=== PATIENT | male | born 1985 | race Hispanic/Latino ===

== ENCOUNTER 2020-04-17 14:06 | Emergency (ER) | payer SELFPAY ==
--- NOTE | 2020-04-17 14:21 | ED.PDOC ---
History of Present Illness - General Chief Complaint: Blood Pressure Problem Stated Complaint: High blood pressure Time Seen by Provider: 04/17/20 14:09 Source: patient, RN notes reviewed, Vital Signs reviewed, other - PCP Exam Limitations: no limitations - History of Present Illness Initial Comments: 35 yo male was being evaluated by pcp for possible covid, when they noted his bp was elevated 160/100. Patient did complain of headache which he thought was due to his sinuses, as he gets recurrent sinus infection. Headache has been on and off for the past week. Has been on decongestants. Also using sons inhaler. Patient has been having cough, congestion and headache about 10 days now. Went home early from work yesterday, boss said he had to get covid test before coming back so thus went to pcp office. Due to headache and elevated bp patient was sent her for evaluation of possible htn urgency/emergency. Allergies/Adverse Reactions: Allergies NO KNOWN ALLERGY Allergy (Unverified 08/13/14 13:12) Home Medications: Ambulatory Orders Azithromycin 250 mg PO DAILY #6 tab 04/17/20 Review of Systems - Review of Systems Constitutional: States: malaise. Denies: chills, fever EENTM: States: nose congestion. Denies: blurred vision, double vision, nose pain, throat swelling, mouth swelling Respiratory: States: cough. Denies: short of breath, wheezing Cardiology: Denies: chest pain, palpitations, syncope Gastrointestinal/Abdominal: Denies: abdominal pain, diarrhea, nausea, vomiting Genitourinary: Denies: dysuria, frequency, hematuria Musculoskeletal: States: muscle pain. Denies: back pain, joint pain, joint swelling, muscle stiffness Skin: Denies: rash Neurological: States: headache. Denies: numbness, paresthesia, seizure, tingling, tremors, weakness Endocrine: Denies: unexplained weight gain, unexplained weight loss Hematologic/Lymphatic: Denies: blood clots, easy bleeding, easy bruising Past Medical History (General) - Patient Medical History Hx Seizures: No Hx Stroke: No Hx Dementia: No Hx Asthma: Yes - "Think has asthma." Hx of COPD: No Hx Cardiac Disorders: No Hx Congestive Heart Failure: No Hx Pacemaker: No Hx Hypertension: No Hx Thyroid Disease: No Hx Diabetes: No Hx Gastroesophageal Reflux: Yes Hx Renal Disease: No Hx Cancer: No Hx of HIV: No Hx Hepatitis C: No Hx MRSA: No - Vaccination History Hx Tetanus, Diphtheria Vaccination: Yes - in last 5-6 years Hx Influenza Vaccination: No Hx Pneumococcal Vaccination: No - Social History Hx Tobacco Use: Yes - smokes marjiuna Hx Chewing Tobacco Use: Yes Hx Alcohol Use: Yes Hx Substance Use: No Hx Substance Use Treatment: No Hx Depression: No Hx Physical Abuse: No Hx Emotional Abuse: No Hx Suspected Abuse: No Family Medical History - Family History Mother Family History: Unknown Living Status: Still Living Physical Exam - Physical Exam General Appearance: Alert, Comfortable, No apparent distress, Well Developed, Well Groomed, Well Hydrated, Well Nourished Eye Exam: bilateral normal Ears, Nose, Throat: hearing grossly normal, normal ENT inspection, normal pharynx Neck: non-tender, full range of motion, supple, normal inspection Respiratory: chest non-tender, lungs clear, normal breath sounds, no respiratory distress, no accessory muscle use, other - prodcutive cough Cardiovascular/Chest: normal peripheral pulses, regular rate, rhythm - HR 95 on monitor , no edema, no gallop, no JVD, no murmur Peripheral Pulses: radial,right: 2+, radial,left: 2+, dorsalis pedis,right: 2+, dorsalis pedis,left: 2+ Gastrointestinal/Abdominal: normal bowel sounds, non tender, soft, no organomegaly, no pulsatile mass Rectal Exam: deferred Back Exam: normal inspection, no CVA tenderness, no vertebral tenderness Extremity: normal range of motion, non-tender, normal inspection, no pedal edema, no calf tenderness, normal capillary refill Neurologic: it senior analyst II-XII nml as tested, no motor/sensory deficits, alert, normal mood/affect, oriented x 3 Skin Exam: normal color, warm/dry Progress - Progress Progress: 04/17/20 14:59 Partial ddx: HTN urgency/emergency, Covid, sinus infection, URI, pneumonia, cad patient given 1 gram ceftriaxone and 8 mg dexamethasone. probable covid, test done at pcp office today. patient saturating 99% on RA, VSS. 04/17/20 16:12 The data reviewed when caring for this patient included: nurse notes, prior records, etc. The history and assessments from nurses notes were reviewed and considered, and the patient's home medication list was also reviewed and considered. My assessment and the results of testing completed here in the ED were discussed with the patient/family. All questions were answered, and they express understanding of my assessment and the plan. They have been instructed to return if their symptoms worsen, and have been asked to follow up with their primary care physician to recheck today's presenting complaint. return precautions given. patient has been instructed by both myself and pcp to monitor bp at home. I have reviewed medication, benefits, alternatives and side effects. Patient decided to proceed with medication.saray stevens was discharged home in stable condition. Mary Anne Pimentel DO #[id number] - Results/Orders Results/Orders: Mild elevated LFT, I suspect underlying fatty liver or other primary liver etiology, I do not feel this is a direct result of his current bp. Currently 140/90. 04/17/20 14:15 EKG STAT Laboratory Results WBC 5.4 K/mm3 (4.8-10.8) 04/17/20 14:20 RBC 5.51 M/mm3 (4.70-6.10) 04/17/20 14:20 Hgb 16.3 gm/dL (14.0-18.0) 04/17/20 14:20 Hct 46.6 % (42.0-52.0) 04/17/20 14:20 MCV 84.5 fl (80.0-94.0) 04/17/20 14:20 MCH 29.6 pg (27.0-31.0) 04/17/20 14:20 MCHC 35.0 g/dL (33.0-37.0) 04/17/20 14:20 RDW 12.6 % (11.5-14.5) 04/17/20 14:20 Plt Count 220 K/mm3 (130-400) 04/17/20 14:20 MPV 7.4 fl (7.40-10.4) 04/17/20 14:20 Absolute Neuts (auto) 3.50 K/uL (1.8-6.8) 04/17/20 14:20 Absolute Lymphs (auto) 1.10 K/uL (1.0-3.4) 04/17/20 14:20 Absolute Monos (auto) 0.60 K/uL (0.2-0.8) 04/17/20 14:20 Absolute Eos (auto) 0.10 K/uL (0.0-0.4) 04/17/20 14:20 Absolute Basos (auto) 0.00 K/uL (0.0-0.1) 04/17/20 14:20 Neutrophils % 64.2 % (42.0-78.0) 04/17/20 14:20 Lymphocytes % 20.7 % (20.0-50.0) 04/17/20 14:20 Monocytes % 11.9 % (2.0-9.0) H 04/17/20 14:20 Eosinophils % 2.7 % (1.0-5.0) 04/17/20 14:20 Basophils % 0.5 % (0.0-2.0) 04/17/20 14:20 PT 9.7 SECONDS (9.0-10.9) 04/17/20 14:20 INR < 1.00 (0.9-1.15) 04/17/20 14:20 PTT (SP) 26.1 SECONDS (21.8-31.6) 04/17/20 14:20 Sodium 136 mmol/L (135-145) 04/17/20 14:20 Potassium 3.7 mmol/L (3.6-5.0) 04/17/20 14:20 Chloride 103 mmol/L (101-111) 04/17/20 14:20 Carbon Dioxide 22 mmol/L (21-31) 04/17/20 14:20 Anion Gap 14.7 (12-18) 04/17/20 14:20 BUN 13 mg/dL (7-18) 04/17/20 14:20 Creatinine 0.73 mg/dL (0.6-1.3) 04/17/20 14:20 BUN/Creatinine Ratio 17.8 (10-20) 04/17/20 14:20 Random Glucose 106 mg/dL (70-105) H 04/17/20 14:20 Serum Osmolality 272.5 mOsm/L (275-295) L 04/17/20 14:20 Calcium 8.6 mg/dL (8.4-10.2) 04/17/20 14:20 Magnesium 1.8 mg/dL (1.8-2.5) 04/17/20 14:20 Total Bilirubin 0.6 mg/dL (0.2-1.0) 04/17/20 14:20 AST 44 IU/L (10-42) H 04/17/20 14:20 ALT 69 IU/L (10-60) H 04/17/20 14:20 Alkaline Phosphatase 77 IU/L (42-121) 04/17/20 14:20 Troponin I < 0.02 ng/mL (0.01-0.05) 04/17/20 14:20 B-Natriuretic Peptide < 15.0 pg/ml (0-100) 04/17/20 14:20 Serum Total Protein 7.8 gm/dL (6.4-8.2) 04/17/20 14:20 Albumin 4.5 g/dl (3.2-5.5) 04/17/20 14:20 Globulin 3.3 gm/dL (2.3-3.5) 04/17/20 14:20 Albumin/Globulin Ratio 1.4 (1.1-1.9) 04/17/20 14:20 Urine Color Yellow (Yellow) 04/17/20 14:30 Urine Appearance Clear (Clear) 04/17/20 14:30 Urine pH 5.5 (4.5-7.8) 04/17/20 14:30 Ur Specific [place] 1.025 (1.005-1.030) 04/17/20 14:30 Urine Protein Negative mg/dL 04/17/20 14:30 Urine Glucose (UA) Negative mg/dL (Negative) 04/17/20 14:30 Urine Ketones Negative mg/dL (NEGATIVE) 04/17/20 14:30 Urine Blood Negative (Negative) 04/17/20 14:30 Urine Nitrite Negative 04/17/20 14:30 Urine Bilirubin Negative (NEGATIVE) 04/17/20 14:30 Urine Urobilinogen 0.2 mg/dL (0.2-1.0) 04/17/20 14:30 Ur Leukocyte Esterase Negative (Negative) 04/17/20 14:30 Urine RBC 0-1 /hpf 04/17/20 14:30 Urine WBC 0-1 /hpf 04/17/20 14:30 Ur Epithelial Cells 0 /hpf 04/17/20 14:30 Urine Bacteria 0 04/17/20 14:30 - EKG/XRAY/CT EKG: Sinus Comments: HR 95, NSR, normal intervals, no evidence of ischema XRAY: chest - bilateral pneumonia CT: head without contrast: no ICH, no acute abnormalities. Departure - Departure Clinical Impression: Elevated blood pressure reading Pneumonia Qualifiers: Pneumonia type: due to unspecified organism Laterality: bilateral Lung lo cation: unspecified part of lung Qualified Code(s): J18.9 - Pneumonia, unspecified organism Time of Disposition: 15:59 Disposition: Discharge to Home or Self Care Condition: Good Departure Forms: ED Discharge - Pt. Copy, Patient Portal Self Enrollment Instructions: DI for High Blood Pressure, High Blood Pressure in Adults, DASH Diet, Pneumonia, Adult (DC), Liver Function Test Referrals: Brittney Lange MD [Primary Care Provider] - 1 Week Prescriptions: Azithromycin 250 mg PO DAILY #6 tab Home Medications: Ambulatory Orders Azithromycin 250 mg PO DAILY #6 tab 04/17/20
--- NOTE | 2020-04-17 15:19 | RAD ---
EXAM DESCRIPTION: Chest,1 View CLINICAL HISTORY: 35 years Male, cough, possible covid COMPARISON: None. TECHNIQUE: AP portable chest. FINDINGS: Heart size is normal with centrally prominent pulmonary vascularity. Ill-defined peripheral nodular infiltrate is seen in the left midlung and in the right mid to lower lung. Question minimal infiltrate in the left lung base behind the heart. The apices appear spared. Right hemidiaphragm is mildly elevated. No pneumothorax or pleural effusion. Bones are unremarkable. IMPRESSION: Bilateral pulmonary infiltrates consistent with the clinical diagnosis of pneumonia. Electronically signed by: Georges Nino MD 04/17/2020 3:16 PM CDT
--- NOTE | 2020-04-17 15:23 | CT ---
EXAM DESCRIPTION: CT head without contrast CLINICAL HISTORY: htn urgency headache COMPARISON: None available TECHNIQUE: Noncontrast head CT was performed with routine protocol. FINDINGS: Normal tompkins-white matter differentiation. Ventricles and sulci are normal for age. No high density hemorrhage, focal edema or shift of the midline. No sulcal effacement. Normal orbital contents. Basilar cisterns appear clear. Intact calvarium with no fracture or lytic lesion. Normal aeration of tympanic cavities and mastoid air cells. No fluid levels in the paranasal sinuses. Coronal images show opacification of right frontal ethmoidal recess with patchy opacification of ethmoid air cells. Mucocele within a posterior left ethmoid air cell with expanded appearance. Skull base appears intact. Symmetrical internal auditory canals. On the coronal reformatted images, mild high density thickening of soft tissue against the outer table of the skull is seen in the posterior right parietal region. On the bone window images, no underlying skull fracture seen in this area to suggest trauma. This could be the sequelae of an old traumatic soft tissue injury. IMPRESSION: No acute cranial pathologic process. Mild chronic appearing paranasal sinus inflammatory changes. This exam was performed according to our departmental dose-optimization program, which includes automated exposure control, adjustment of the mA and/or kV according to patient size and/or use of iterative reconstruction technique. Total DLP equals 752.48 mGycm. Electronically signed by: Georges Nino MD 04/17/2020 3:21 PM CDT
[2020-04-17] MEDS ORDERED: cefTRIAXone SODIUM 1 GM VIAL IM ONE (16:05)
[2020-04-17] MEDS ORDERED: LIDOCAINE 1% 50 ML VIAL INJ ONE (16:09)
[2020-04-17 16:24] VITALS: BP 136/100; TEMP 97.6
[2020-04-17 16:38] VITALS: O2SAT 95
== END 2020-04-17 16:39 | disposition home or self-care (01) ==
LOC: ER 14:06
DX: J18.9 Pneumonia, unspecified organism (principal); R03.0 Elevated blood-pressure reading, without diagnosis of hypertension; R51 Headache; K76.0 Fatty (change of) liver, not elsewhere classified; K21.9 Gastro-esophageal reflux disease without esophagitis; Z87.891 Personal history of nicotine dependence
CPT/HCPCS: 36415; 70450; 71045; 80053; 81001; 83735; 83880; 84484; 85025; 85610; 85730; 93005; J0696

== ENCOUNTER → 2020-04-17 | Outpatient (CLI) | payer OTHER | LOC: YCFC.O 14:00 | PROVIDERS: ATTEND Family Medicine | DX: Z03.818 Encounter for observation for suspected exposure to other biological agents ruled out (principal) ==